=== PATIENT | male | born 1950 | race Caucasian/White ===

== ENCOUNTER 2016-11-07 07:36 | Emergency (ER) | payer OTHER ==
[~2016-11-07] VITALS: Ht 170.2 cm; Wt 127.2 kg
[~2016-11-07 07:36] MED LIST: AMLO-511 PO; ATOR10TA69 PO; DIVA500T35 PO; INSLAN SQ; INSU100C3 SQ; LEVO25TA4 PO; LISI-661 PO; METF500T4 PO; QUET25TA PO; SERT50TA12 PO
[2016-11-07] MEDS ORDERED: METO50 PO (07:45)
[2016-11-07 07:52] LABS: GLUCOSE,POINT OF CARE 278 MG/DL (70-110)
[2016-11-07 08:16] LABS: EOSINOPHILS % (AUTO) 0 % (1.0-6.0); HEMATOCRIT 39.3 % (41-53); LYMPHOCYTES # (AUTO) 1.7 K/uL (1.0-4.8); LYMPHOCYTES % (AUTO) 21.3 % (22.0-44.0); MEAN CORPUSCULAR HEMOGLOBIN 28.7 pg (26.0-34.0); MEAN CORPUSCULAR VOLUME 87 fL (80-100); MONOCYTES # (AUTO) 0.6 K/uL (0.1-1.0); MONOCYTES % (AUTO) 7.1 % (2.0-9.0); NEUTROPHILS # (AUTO) 3.7 K/uL (1.8-7.7); NEUTROPHILS % (AUTO) 46.8 % (40.0-70.0); PLATELET COUNT (AUTO) 308 K/uL (150-450); RED BLOOD CELL COUNT(AUTO) 4.51 MIL/uL (4.50-5.90); RED CELL DISTRIBUTION WIDTH 14.3 % (11.5-14.5)
[2016-11-07 08:49] LABS: ANION GAP 5 mmol/L (8-16); CALCIUM, TOTAL 9.4 mg/dL (8.8-10.5); CARBON DIOXIDE 29 mmol/L (22-29); CHLORIDE 101 mmol/L (98-107); GLOMERULAR FILTR. RATE CALC > 60 mL/min (>60); POTASSIUM 5.3 mmol/L (3.5-5.1); SODIUM SERUM 135 mmol/L (136-145); UREA NITROGEN, BLOOD 15 mg/dL (7-18)
[2016-11-07 08:56] LABS: ALANINE AMINOTRANSFERASE 37 U/L (12-78); ALBUMIN 3.8 g/dL (3.4-5.0); ASPARTATE AMINOTRANSFERASE 22 U/L (15-37); BILIRUBIN,TOTAL 0.3 mg/dL (0.1-1.0); TOTAL PROTEIN, SERUM 7.9 g/dL (6.4-8.2)
[2016-11-07 10:24] VITALS: BP 150/80
== END 2016-11-07 10:30 | disposition home or self-care (01) ==
LOC: EMS 07:37 → EEVIPCON 07:37 → EMS 10:30
DX: F41.9 Anxiety disorder, unspecified (principal); F31.9 Bipolar disorder, unspecified; E03.9 Hypothyroidism, unspecified; E11.9 Type 2 diabetes mellitus without complications
CPT/HCPCS: 36415; 80053; 80307; 82962; 85025; 99284; G0480

== ENCOUNTER 2018-09-15 20:37 | Emergency (ER) | payer MEDICARE, MEDICAID ==
[~2018-09-15] VITALS: Ht 172.7 cm; Wt 95.5 kg
[~2018-09-15 20:37] MED LIST changes: -AMLO-511 PO; +AMLO5TAB9 PO; +ASPI81 PO; -ATOR10TA69 PO; +DIVA-78 PO; -DIVA500T35 PO; +FURO20 PO; -INSU100C3 SQ; -LEVO25TA4 PO; +LEVO50TA11 PO; +LINA5TAB PO; +LOVA20 PO; +METF-446 PO; -METF500T4 PO; +METO50 PO; -QUET25TA PO
[2018-09-15 22:09] LABS: GLUCOSE,POINT OF CARE 27 MG/DL (70-110)
[2018-09-15] MEDS ORDERED: DEXTROSE 50%-WATER 25 GM/50 ML SYRINGE IVP ONE (22:15)
[2018-09-15 22:32] LABS: BASOPHILS % (AUTO) 0.8 % (0.0-2.0); EOSINOPHILS % (AUTO) 0.8 % (1.0-6.0); HEMATOCRIT 35.7 % (41-53); LYMPHOCYTES # (AUTO) 1.5 K/uL (1.0-4.8); LYMPHOCYTES % (AUTO) 21.3 % (22.0-44.0); MEAN CORPUSCULAR HEMOGLOBIN 26.1 pg (26.0-34.0); MEAN CORPUSCULAR HGB CONC 30.9 G/dL (31.0-37.0); MEAN CORPUSCULAR VOLUME 85 fL (80-100); MONOCYTES # (AUTO) 0.9 K/uL (0.1-1.0); MONOCYTES % (AUTO) 12.3 % (2.0-9.0); NEUTROPHILS # (AUTO) 4.6 K/uL (1.8-7.7); NEUTROPHILS % (AUTO) 64.8 % (40.0-70.0); PLATELET COUNT (AUTO) 285 K/uL (150-450); RED BLOOD CELL COUNT(AUTO) 4.22 MIL/uL (4.50-5.90); RED CELL DISTRIBUTION WIDTH 17.7 % (11.5-14.5)
[2018-09-15 22:47] LABS: CALCIUM, TOTAL 8.7 mg/dL (8.8-10.5); CREATININE 2.68 mg/dL (0.60-1.30)
[2018-09-15 23:05] LABS: GLUCOSE,POINT OF CARE 156 MG/DL (70-110)
[2018-09-16 00:09] LABS: GLUCOSE,POINT OF CARE 170 MG/DL (70-110)
[2018-09-16 01:04] LABS: GLUCOSE,POINT OF CARE 159 MG/DL (70-110)
[2018-09-16 01:23] VITALS: BP 150/76
== END 2018-09-16 02:05 | disposition home or self-care (01) ==
LOC: EMS 20:38
DX: F31.9 Bipolar disorder, unspecified (principal); E11.649 Type 2 diabetes mellitus with hypoglycemia without coma; N28.9 Disorder of kidney and ureter, unspecified; E03.9 Hypothyroidism, unspecified; I10 Essential (primary) hypertension; Z79.899 Other long term (current) drug therapy; Z79.4 Long term (current) use of insulin
CPT/HCPCS: 82948; 96374

== ENCOUNTER 2019-02-15 18:00 | Emergency (ER) | payer MEDICARE, MEDICAID ==
[~2019-02-15] VITALS: Ht 172.7 cm; Wt 104.5 kg
[2019-02-15 23:27] LABS: BASOPHILS % (AUTO) 0.5 % (0.0-2.0); EOSINOPHILS % (AUTO) 0.4 % (1.0-6.0); HEMATOCRIT 36.2 % (41-53); HEMOGLOBIN 11.7 g/dL (13.5-17.5); LYMPHOCYTES # (AUTO) 1.6 K/uL (1.0-4.8); LYMPHOCYTES % (AUTO) 13.4 % (22.0-44.0); MEAN CORPUSCULAR HEMOGLOBIN 27.6 pg (26.0-34.0); MEAN CORPUSCULAR HGB CONC 32.4 G/dL (31.0-37.0); MEAN CORPUSCULAR VOLUME 85 fL (80-100); MONOCYTES # (AUTO) 1.2 K/uL (0.1-1.0); MONOCYTES % (AUTO) 10.2 % (2.0-9.0); NEUTROPHILS # (AUTO) 8.8 K/uL (1.8-7.7); NEUTROPHILS % (AUTO) 75.5 % (40.0-70.0); PLATELET COUNT (AUTO) 257 K/uL (150-450); RED BLOOD CELL COUNT(AUTO) 4.24 MIL/uL (4.50-5.90); RED CELL DISTRIBUTION WIDTH 14.5 % (11.5-14.5)
[2019-02-15 23:44] LABS: ANION GAP 6 mmol/L (8-16); CALCIUM, TOTAL 9.1 mg/dL (8.8-10.5); CARBON DIOXIDE 27 mmol/L (22-29); CHLORIDE 99 mmol/L (98-107); CREATININE 1.11 mg/dL (0.60-1.30); GLOMERULAR FILTR. RATE CALC > 60 mL/min (>60); GLUCOSE,RANDOM 205 mg/dL (70-110); POTASSIUM 4.7 mmol/L (3.5-5.1); SODIUM SERUM 132 mmol/L (136-145); UREA NITROGEN, BLOOD 16 mg/dL (7-18)
[2019-02-15 23:51] LABS: B-TYPE NATRIURETIC PEPTIDE 90 pg/mL (0-100)
[2019-02-16 00:07] LABS: ALANINE AMINOTRANSFERASE 19 U/L (12-78); ALBUMIN 3.5 g/dL (3.4-5.0); ALKALINE PHOSPHATASE 57 U/L (46-116); ASPARTATE AMINOTRANSFERASE 12 U/L (15-37); BILIRUBIN,TOTAL 0.4 mg/dL (0.1-1.0); CREATINE KINASE, TOTAL ONLY 88 U/L (39-308); TOTAL PROTEIN, SERUM 7.4 g/dL (6.4-8.2)
[2019-02-16] MEDS ORDERED: MAGNESIUM SULFATE 2 GM/WATER 50 ML IV ONE (01:00)
[2019-02-16] MEDS ORDERED: 0.9% SODIUM CHLORIDE 10 ML SYRINGE IVP PRN (03:00)
[2019-02-16] MEDS ORDERED: ONDANSETRON HCL 4 MG/2 ML VIAL IVP PRN (03:00)
[2019-02-16] MEDS ORDERED: ACETAMINOPHEN 325 MG TABLET PO PRN (03:00)
[2019-02-16] MEDS ORDERED: ONDANSETRON HCL 4 MG/2 ML VIAL IVP ONE (04:45)
[2019-02-16 06:01] VITALS: BP 136/74
== END 2019-02-16 07:37 | disposition left against medical advice (07) ==
LOC: EMS 18:00
DX: R06.00 Dyspnea, unspecified (principal); E11.9 Type 2 diabetes mellitus without complications; E03.9 Hypothyroidism, unspecified; I10 Essential (primary) hypertension; I48.0 Paroxysmal atrial fibrillation; F31.9 Bipolar disorder, unspecified; Z79.899 Other long term (current) drug therapy
CPT/HCPCS: 36415; 71046; 80053; 82550; 83735; 83880; 84484; 85025; 93005; 96365; 96366; 96375; 99284; J2405; J3475

== ENCOUNTER 2019-04-06 05:49 | Emergency (ER) | payer MEDICARE, MEDICAID ==
[~2019-04-06] VITALS: Ht 170.2 cm; Wt 107.7 kg
[~2019-04-06 05:49] MED LIST changes: +ASPI-728 PO; -ASPI81 PO
[2019-04-06] MEDS ORDERED: FINA5TAB41 PO (05:59)
[2019-04-06] MEDS ORDERED: RIVA20TA PO (05:59)
[2019-04-06] MEDS ORDERED: TAMS-13 PO (05:59)
[2019-04-06 06:33] LABS: GLUCOSE,POINT OF CARE 150 MG/DL (70-110)
[2019-04-06 09:00] VITALS: BP 137/76
== END 2019-04-06 09:14 | disposition home or self-care (01) ==
LOC: EMS 05:51
DX: S91.115A Laceration without foreign body of left lesser toe(s) without damage to nail, initial encounter (principal); E11.9 Type 2 diabetes mellitus without complications; E03.9 Hypothyroidism, unspecified; I10 Essential (primary) hypertension; I48.91 Unspecified atrial fibrillation; F31.9 Bipolar disorder, unspecified; Z98.890 Other specified postprocedural states; Z79.899 Other long term (current) drug therapy; Z79.82 Long term (current) use of aspirin; X58.XXXA Exposure to other specified factors, initial encounter; Y93.89 Activity, other specified; Y92.89 Other specified places as the place of occurrence of the external cause; Y99.8 Other external cause status

== ENCOUNTER 2019-10-16 04:56 | Emergency (ER) | payer MEDICARE, MEDICAID ==
[~2019-10-16] VITALS: Ht 170.2 cm; Wt 104.5 kg
[~2019-10-16 04:56] MED LIST changes: +AMLO-257 PO; -AMLO5TAB9 PO; +DIVA-112 PO; -DIVA-78 PO; +FINA5TAB41 PO; -LOVA20 PO; +LOVA20TA73 PO; +RIVA20TA PO; +TAMS-13 PO
[2019-10-16] MEDS ORDERED: PANT-31 PO (05:26)
[2019-10-16 05:47] VITALS: BP 143/82
== END 2019-10-16 06:44 | disposition home or self-care (01) ==
LOC: EMS 04:56
DX: M54.5 Low back pain (principal); F31.9 Bipolar disorder, unspecified; E11.9 Type 2 diabetes mellitus without complications; E03.9 Hypothyroidism, unspecified; Z79.82 Long term (current) use of aspirin; Z79.4 Long term (current) use of insulin; Z79.899 Other long term (current) drug therapy
CPT/HCPCS: 99283; Z7502

== ENCOUNTER 2019-10-23 01:49 | Emergency (ER) | payer MEDICARE, MEDICAID ==
[~2019-10-23] VITALS: Ht 171.4 cm; Wt 128.5 kg
[~2019-10-23 01:49] MED LIST changes: +PANT-31 PO
[2019-10-23 03:15] VITALS: BP 171/100
[2019-10-23 03:15] LABS: EOSINOPHILS % (AUTO) 5.1 % (1.0-6.0); HEMATOCRIT 30.4 % (41-53); LYMPHOCYTES # (AUTO) 1.6 K/uL (1.0-4.8); LYMPHOCYTES % (AUTO) 24.2 % (22.0-44.0); MEAN CORPUSCULAR HEMOGLOBIN 28.5 pg (26.0-34.0); MEAN CORPUSCULAR VOLUME 87 fL (80-100); MONOCYTES # (AUTO) 0.5 K/uL (0.1-1.0); MONOCYTES % (AUTO) 6.9 % (2.0-9.0); NEUTROPHILS # (AUTO) 4.2 K/uL (1.8-7.7); NEUTROPHILS % (AUTO) 62.8 % (40.0-70.0); PLATELET COUNT (AUTO) 261 K/uL (150-450); RED BLOOD CELL COUNT(AUTO) 3.52 MIL/uL (4.50-5.90)
[2019-10-23 03:23] LABS: CALCIUM, TOTAL 8.7 mg/dL (8.8-10.5); CREATININE 1.25 mg/dL (0.60-1.30); POTASSIUM 4.2 mmol/L (3.5-5.1)
[2019-10-23 03:28] LABS: INR 1.2 (0.9-1.1); PROTHROMBIN TIME 12.4 SEC (9.4-11.6)
[2019-10-23 03:29] LABS: ALBUMIN 3.2 g/dL (3.4-5.0); BILIRUBIN,TOTAL 0.1 mg/dL (0.1-1.0); TOTAL PROTEIN, SERUM 6.6 g/dL (6.4-8.2)
== END 2019-10-23 03:58 | disposition home or self-care (01) ==
LOC: EMS 01:49
DX: R06.02 Shortness of breath (principal); F43.12 Post-traumatic stress disorder, chronic; I10 Essential (primary) hypertension; E11.9 Type 2 diabetes mellitus without complications; E03.9 Hypothyroidism, unspecified; F31.9 Bipolar disorder, unspecified; I48.91 Unspecified atrial fibrillation; Z20.828 Contact with and (suspected) exposure to other viral communicable diseases; Z79.82 Long term (current) use of aspirin; Z79.4 Long term (current) use of insulin; Z79.899 Other long term (current) drug therapy; X58.XXXA Exposure to other specified factors, initial encounter; Y93.89 Activity, other specified; Y92.89 Other specified places as the place of occurrence of the external cause; Y99.8 Other external cause status
CPT/HCPCS: 87426; 93005; 36415-L1; 36415-TC; 71045-TC

== ENCOUNTER 2022-01-04 15:01 | Emergency (ER) | payer OTHER, MEDICAID ==
[~2022-01-04] VITALS: Ht 167.6 cm; Wt 104.5 kg
[~2022-01-04 15:01] MED LIST changes: +ASPI-1450 PO; -ASPI-728 PO; -LISI-661 PO; +LISI-893 PO; +SERT-439 PO; -SERT50TA12 PO
[2022-01-04 16:12] LABS: COVID AG,FIA SOURCE NASOPHARYNGEAL
[2022-01-04 16:14] LABS: BASOPHILS % (AUTO) 0.4 % (0.0-2.0); EOSINOPHILS % (AUTO) 2.3 % (1.0-6.0); HEMATOCRIT 42.6 % (41-53); HEMOGLOBIN 13.6 g/dL (13.5-17.5); LYMPHOCYTES # (AUTO) 0.8 K/uL (1.0-4.8); LYMPHOCYTES % (AUTO) 8.3 % (22.0-44.0); MEAN CORPUSCULAR HEMOGLOBIN 27.5 pg (26.0-34.0); MEAN CORPUSCULAR HGB CONC 31.9 G/dL (31.0-37.0); MEAN CORPUSCULAR VOLUME 86 fL (80-100); MONOCYTES # (AUTO) 0.8 K/uL (0.1-1.0); MONOCYTES % (AUTO) 8.2 % (2.0-9.0); NEUTROPHILS # (AUTO) 7.8 K/uL (1.8-7.7); NEUTROPHILS % (AUTO) 80.8 % (40.0-70.0); PLATELET COUNT (AUTO) 241 K/uL (150-450); RED BLOOD CELL COUNT(AUTO) 4.94 MIL/uL (4.50-5.90); RED CELL DISTRIBUTION WIDTH 15.2 % (11.5-14.5)
[2022-01-04 16:22] LABS: ANION GAP 7 mmol/L (8-16); CALCIUM, TOTAL 9.1 mg/dL (8.8-10.5); CARBON DIOXIDE 30 mmol/L (22-29); CHLORIDE 98 mmol/L (98-107); CREATININE 1.08 mg/dL (0.60-1.30); GLUCOSE,RANDOM 70 mg/dL (70-110); POTASSIUM 3.6 mmol/L (3.5-5.1); SODIUM SERUM 135 mmol/L (136-145); UREA NITROGEN, BLOOD 12 mg/dL (7-18)
[2022-01-04 16:24] LABS: GLOMERULAR FILTR. RATE CALC > 60 mL/min (>60)
[2022-01-04 16:27] LABS: ALANINE AMINOTRANSFERASE 14 U/L (12-78); ALBUMIN 3.4 g/dL (3.4-5.0); ALKALINE PHOSPHATASE 72 U/L (46-116); ASPARTATE AMINOTRANSFERASE 17 U/L (15-37); BILIRUBIN,TOTAL 0.3 mg/dL (0.1-1.0); TOTAL PROTEIN, SERUM 7.6 g/dL (6.4-8.2); VALPROIC ACID 43 mcg/mL (50-100)
[2022-01-04 16:36] LABS: INFLUENZA TYPE A NEGATIVE FOR TYPE A (NEGATIVE); INFLUENZA TYPE B NEGATIVE FOR TYPE B (NEGATIVE)
[2022-01-04 16:37] LABS: B-TYPE NATRIURETIC PEPTIDE 217 pg/mL (0-100)
[2022-01-04] MEDS ORDERED: ACETAMINOPHEN 325 MG TABLET PO ONE (16:45)
[2022-01-04 16:47] LABS: LACTIC ACID 2.9 mmol/L (0.4-2.0)
[2022-01-04 16:53] LABS: APPEARANCE,URINE CLEAR (CLEAR); BILIRUBIN,URINE NEGATIVE (NEGATIVE); GLUCOSE, URINE (UA) >=1000 mg/dL (NEGATIVE); KETONES,URINE NEGATIVE (NEGATIVE); LEUKOCYTE ESTERASE ,URINE NEGATIVE (NEGATIVE); NITRATE,URINE NEGATIVE (NEGATIVE); OCCULT BLOOD,URINE NEGATIVE (NEGATIVE); PROTEIN,URINE NEGATIVE (NEGATIVE); SPECIFIC GRAVITIY, URINE 1.014 (1.003-1.030); UROBILINOGEN,URINE <=1.0 mg/dL (<=1.0)
[2022-01-04 17:01] VITALS: BP 150/77
[2022-01-04 17:01] LABS: BACTERIA,URINE None Seen /HPF (None Seen); RBC,URINE None Seen /HPF (0-2); SQUAMOUS EPITHELIAL CELL,UR Few /LPF (None Seen); WBC,URINE 0-2 /HPF (0-5)
[2022-01-04] MEDS ORDERED: SODIUM CHLORIDE 0.9% 1,000 ML IV ONE (17:15)
[2022-01-04] MEDS ORDERED: GUAIF600 PO (17:37)
[2022-01-04] MEDS ORDERED: GUAI600T31 PO (17:37)
[2022-01-04] MEDS ORDERED: LEVO150 PO (17:44)
[2022-01-04] MEDS ORDERED: GuaiFENesin SR 600 MG ER TABLET PO ONE (17:45)
== END 2022-01-04 23:38 | disposition home or self-care (01) ==
LOC: EMS 15:08
DX: J06.9 Acute upper respiratory infection, unspecified (principal); F31.9 Bipolar disorder, unspecified; E11.9 Type 2 diabetes mellitus without complications; E03.9 Hypothyroidism, unspecified; I11.0 Hypertensive heart disease with heart failure; I50.9 Heart failure, unspecified; Z90.49 Acquired absence of other specified parts of digestive tract; Z20.822 Contact with and (suspected) exposure to COVID-19
CPT/HCPCS: 99285; 71045; 87426; 80053; 80164; 83605; 83880; 84484; 85025; 87040; 87804; 36415; 93005; 81001; G0480

== ENCOUNTER 2023-09-08 19:09 | Emergency (ER) | payer OTHER, MEDICAID ==
[~2023-09-08] VITALS: Ht 171.4 cm; Wt 106.0 kg
[~2023-09-08 19:09] MED LIST changes: +GUAI600T31 PO; +GUAIF600 PO; +LEVO150 PO; -LEVO50TA11 PO; -TAMS-13 PO; +TAMS0.4C94 PO
[2023-09-08 20:13] LABS: COVID AG,FIA SOURCE NASAL SWAB
[2023-09-08 20:36] LABS: SARS-COV2 (COVID) ANTIGEN,FIA Negative (Negative)
[2023-09-08 20:37] LABS: INFLUENZA TYPE A NEGATIVE FOR TYPE A (NEGATIVE); INFLUENZA TYPE B NEGATIVE FOR TYPE B (NEGATIVE)
[2023-09-08 20:56] LABS: BASOPHILS % (AUTO) 0.1 % (0.0-2.0); EOSINOPHILS % (AUTO) 0.8 % (1.0-6.0); HEMATOCRIT 45.6 % (41-53); HEMOGLOBIN 14.3 g/dL (13.5-17.5); LYMPHOCYTES # (AUTO) 0.3 K/uL (1.0-4.8); LYMPHOCYTES % (AUTO) 2.3 % (22.0-44.0); MEAN CORPUSCULAR HEMOGLOBIN 27.7 pg (26.0-34.0); MEAN CORPUSCULAR HGB CONC 31.3 G/dL (31.0-37.0); MEAN CORPUSCULAR VOLUME 88 fL (80-100); MONOCYTES # (AUTO) 0.4 K/uL (0.1-1.0); MONOCYTES % (AUTO) 3.7 % (2.0-9.0); NEUTROPHILS # (AUTO) 10.8 K/uL (1.8-7.7); PLATELET COUNT (AUTO) 236 K/uL (150-450); RED BLOOD CELL COUNT(AUTO) 5.16 MIL/uL (4.50-5.90); RED CELL DISTRIBUTION WIDTH 14.7 % (11.5-14.5); WHITE BLOOD COUNT (AUTO) 11.6 K/uL (4.5-11.0)
[2023-09-08 20:57] LABS: NEUTROPHILS % (AUTO) 93.1 % (40.0-70.0)
[2023-09-08 20:57] LABS: GLUCOMETER DEV NAME(LOC) ER.7; GLUCOSE,POINT OF CARE 98 MG/DL (70-110)
[2023-09-08 21:02] LABS: CALCIUM, TOTAL 8.9 mg/dL (8.8-10.5); CREATININE 1.41 mg/dL (0.60-1.30)
[2023-09-08 21:10] LABS: TROPONIN I-HIGH SENSITIVITY 7 ng/L (<76)
[2023-09-08 22:39] VITALS: TEMP 99
[2023-09-09] MEDS ORDERED: ACET-66 PO (00:02)
[2023-09-09] MEDS ORDERED: GUAIFDM PO (00:02)
[2023-09-09] MEDS: ONDANSETRON HCL 4 MG TABLET PO ONE (00:04)
[2023-09-09] MEDS: ACETAMINOPHEN 500 MG TABLET PO ONE (00:04)
[2023-09-09 00:12] VITALS: BP 105/61; PULSE 70; RESP 18
== END 2023-09-09 00:30 | disposition home or self-care (01) ==
LOC: EMS 19:09
DX: J06.9 Acute upper respiratory infection, unspecified (principal); R53.1 Weakness; R11.10 Vomiting, unspecified; E11.65 Type 2 diabetes mellitus with hyperglycemia; N28.9 Disorder of kidney and ureter, unspecified; I10 Essential (primary) hypertension; Z82.49 Family history of ischemic heart disease and other diseases of the circulatory system; Z20.822 Contact with and (suspected) exposure to COVID-19
CPT/HCPCS: 99285; 71045; 87426; 80048; 82962; 84484; 85025; 87804; 36415; 93005; Q0162